=== PATIENT | female | born 1985 | race Caucasian/White ===

== ENCOUNTER 2018-04-22 00:48 | Observation (INO) ==
[2018-04-22] MEDS ORDERED: Lactated Ringers 1,000 ML PRIMARY IV ONE (02:00)
[2018-04-22 02:42] LABS: Amnisure NEGATIVE (NEGATIVE)
[2018-04-22] MEDS ORDERED: TERBUTALINE SULFATE 1 MG/1 ML SDV SUBCUT ONE ×2 (03:10→04:03)
[2018-04-22 06:45] LABS: BASOPHILS # (AUTO) 0.01 10*3/UL; BASOPHILS % (AUTO) 0.1 % (0-1); EOSINOPHILS # (AUTO) 0.01 10*3/UL; EOSINOPHILS % (AUTO) 0.1 % (0-8); Hematocrit [HCT] 32.6 % (37.0-47.0); LYMPHOCYTES # (AUTO) 1.43 10*3/uL; MEAN CORPUSCULAR HEMOGLOBIN 30.2 PG (27-31); MEAN CORPUSCULAR HGB CONC 33.7 g/dL (33-37); MEAN CORPUSCULAR VOLUME 89.6 FL (81-99); MEAN PLATELET VOLUME 10.1 FL (7.4-12.2); MONOCYTES % (AUTO) 5.8 % (5-15); NEUTROPHILS # (AUTO) 9.92 10*3/UL; NEUTROPHILS % (AUTO) 81.9 % (50-80); RED BLOOD COUNT 3.64 10^6/uL (4.20-5.40)
[2018-04-22 06:54] LABS: BLOOD UREA NITROGEN 5 mg/dL (7-22); SERUM ALBUMIN 3.2 g/dL (3.5-4.8)
[2018-04-22 07:08] LABS: PLATELET MORPHOLOGY COMMENT NORMAL MORPHOLOGY (NORM); RBC MORPHOLOGY COMMENT NORMAL MORPHOLOGY (NORM); WBC MORPHOLOGY COMMENT NORMAL MORPHOLOGY (NORM)
[2018-04-22] MEDS: NIFEdipine 10 MG CAPSULE PO PRN ×4 (07:53→20:25)
--- NOTE | 2018-04-22 08:58 | DI ---
US OB Transvaginal,04/22/2018 8:02 AM: Clinical History: labor Previous Exam: April 22, 2018 Findings: Multiple transvaginal grayscale and color Doppler sonographic images are obtained through the lower u terine segment, and demonstrate a cervix which is long and closed measuring 3.7 cm in length. Other e valuation was extremely limited due to advanced maternal age. Impression: Cervix long and closed measuring 3.7 cm in length.
--- NOTE | 2018-04-22 09:28 | DI ---
US OB , Limited,04/22/2018 7:52 AM: Clinical History: contractions. Previous Exam: April 01, 2018 Findings: Multiple transabdominal grayscale and color Doppler sonographic images are obtained through the pelvi s, and demonstrate an amniotic fluid index measuring 6.8 cm. Estimated gestational age was determined by a composite of biparietal diameter, head circumference, a bdominal circumference and femur length yielding an estimated gestational age by ultrasound of 34 wee ks 4 days. Estimated weight is 2331 g (61st percentile). The inferior margin of the placenta lies 9.5 cm from the internal cervical os. Impression: 1. Oligohydramnios. 2. Size equals dates.
--- NOTE | 2018-04-22 10:22 | OB.PROGRES ---
Interval History: 32 yo at 33 0/7 weeks gestation presented last evening with contractions. OB history notable for threatened labor at 30 weeks gestation and did receive a course of steroids. She was prescribed procardia at the time, but contractions resolved and hasn't needed to take it. Yesterday she started feeling ill, nausea, sinus pressure. Around 1830 she started more, she took 2 doses of procardia without improvement so came in for evaluation. Contractions have gotten stronger and closer together. Pain is worst in lower abdomen, worse on L side. She denies recent intercourse. Didn't do anything extra strenuous over the last few days. No cough, fever, vomiting, diarrhea, rash, dysuria, hematuria, vaginal discharge. 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, no etoh or illicit drug use Objective - Cervical Exam Cervical Exam: Per RN fingertip/ /-3 [place]: q2-5 mins Heart Rate: mod variability, baseline 140, +accels, -decels Heart Rate Interpretation Category: Category I - Labs CBC and BMP: 04/22/18 06:45 04/22/18 06:45 Additional Lab Results: 04/22/18 02:35 Amnio Fld Other Info Negative Fibronectin Negative Fibronect Spec Quality No U/s: neli 6.8 cm, single deepest pocket 2.7cm; EFW 61%ile, Cervical length 3.7 cm Assessment and Plan - Patient Problems (1) uterine contractions in third trimester, antepartum Current Visit: Yes Status: Acute Code(s): O47.03 - False labor before 37 completed weeks of gestation, third trimester Support Text: 32 yo at 33 0/7 weeks gestation with contractions. S/p steroid course 3 weeks ago. FFN negative, Cervical length 3.7 cm. She did not respond to procardia at home, contractions did space out this am with terbutaline 0.25mg x2 doses. Urine appears clean. Amnisure negative. Negative vaginosis panel. U/s notable for borderline oligohydramnios with single deepest pocket 2.7 cm. Will give IVF, recheck NELI in am. For contractions she is currently on procardia 10mg po q4h. If contractions increase in frequency or intensity plan to recheck cervix, if evidence of active labor will likely need transferred to [place] given status. Care transferred to Dr. Martin.
[2018-04-22] MEDS ORDERED: Lactated Ringers-OB Dept 1,000 ML ONE (13:22)
[2018-04-22] MEDS: Lactated Ringers 1,000 ML PRIMARY IV SCH ×2 (13:45→23:47)
[2018-04-22] MEDS: diphenhydrAMINE 25 MG CAPSULE PO PRN ×2 (13:46→22:40)
[2018-04-22 16:57] VITALS: TEMP 97.7
[2018-04-22 17:04] LABS: BILIRUBIN,URINE NEGATIVE (NEG); CLARITY,URINE CLEAR (CLEAR); COLOR,URINE YELLOW; GLUCOSE, URINE (UA) NEGATIVE (NEG); OCCULT BLOOD,URINE NEGATIVE (NEG); PROTEIN,URINE NEGATIVE (NEG); UROBILINOGEN,URINE 0.2 mg/dL (0.2)
[2018-04-22 17:18] LABS: SQUAMOUS EPITHELIAL CELL,UR FEW; URINE SAMPLE TYPE CLEAN CATCH URINE; WBC,URINE 0-1
[2018-04-23] MEDS: NIFEdipine 10 MG CAPSULE PO PRN ×3 (01:04→09:02)
[2018-04-23 08:00] VITALS: RESP 18
--- NOTE | 2018-04-23 08:12 | OB.PROGRES ---
Interval History: Pt. is feeling much better this AM. She reports no contractions. US pending this AM for NELI. The patient would like to go home after her ultrasound. FHRM is category 1. Objective - Labs CBC and BMP: 04/22/18 06:45 04/22/18 06:45 - Vital Signs Last Taken Vital Signs: Vital Signs - Last Taken Temperature 97.7 F 04/22/18 16:56 Pulse Rate 87 04/23/18 07:00 Respiratory Rate 18 04/23/18 07:00 Blood Pressure 120/67 04/23/18 06:00 Pulse Ox 97 04/23/18 07:00 Assessment and Plan - Assessment / Plan Additional Assessment/Plan Details: No evidence of PTL. Discharge to home after NELI if normal. - Time/Visit Time Spent With Patient: Less Than 15 Minutes
--- NOTE | 2018-04-23 08:16 | DCSUMMARY ---
Hospitalization Summary Admit Date: 04/22/18 Discharge Date: 04/23/18 Primary Diagnosis:: Contractions Hospital Course: The patient was admitted for treatment of contractions without labor. She was started on procardia and observed. Contractions ceased after several doses of procardia. FHRT remained category 1 throughout. The patient was discharged to home in good condition on HD 2. Exam - Vitals Vital Signs: Vital Signs Temperature 97.7 F Temperature Source Temporal Artery Scan Pulse Rate [Pulse Oximeter] 87 Respiratory Rate 18 Blood Pressure [Left Arm] 120/67 Pulse Ox 97 Height 5 ft 6 in Weight 207 lb 2 oz
[2018-04-23 09:24] VITALS: BP 108/75
[2018-04-23 09:29] VITALS: O2SAT 97
--- NOTE | 2018-04-23 13:01 | DI ---
US OB , Limited,04/23/2018 7:00 AM: Clinical History: Followup amniotic fluid index. Previous Exam: April 22, 2018 Findings: Multiple transabdominal grayscale and color Doppler sonographic images are obtained through the pelvi s, and demonstrate and amniotic fluid index measuring 7.6 cm. Detected Doppler heart tones measured 128 beats per minute. The placenta is anterior. Impression: Amniotic fluid index measuring 7.6 cm. This is likely within margin of error. (No significant change)
== END 2018-04-23 09:15 | disposition home or self-care (01) ==
LOC: OBIP 00:48 → OBOP 00:48 → UNDODISOB 04-23 18:35
PROVIDERS: ADMIT Student in an Organized Health Care Education/Training Program; ATTEND Obstetrics & Gynecology

== ENCOUNTER 2018-05-20 12:51 | Inpatient (IN) ==
[2018-05-20 13:55] LABS: Hematocrit [HCT] 33.3 % (37.0-47.0); Hemoglobin [HGB] 11.4 g/dL (12.0-16.0); MEAN CORPUSCULAR HEMOGLOBIN 30.7 PG (27-31); MEAN CORPUSCULAR HGB CONC 34.2 g/dL (33-37); MEAN CORPUSCULAR VOLUME 89.8 FL (81-99); MEAN PLATELET VOLUME 11.2 FL (7.4-12.2); RED BLOOD COUNT 3.71 10^6/uL (4.20-5.40)
[2018-05-20 14:09] LABS: BLOOD UREA NITROGEN 7 mg/dL (7-22); SERUM ALBUMIN 3.2 g/dL (3.5-4.8); Uric Acid 7.4 mg/dl (2.5-6.2)
[2018-05-20] MEDS ORDERED: ACETAMINOPHEN 500 MG TABLET PO ONE ×2 (17:53→19:15)
--- NOTE | 2018-05-20 19:47 | OB.PROGRES ---
Date of Service: 05/20/18 Time of Service: 18:00 Interval History: 32 at 36 6/7 weeks gestation who presented for testing. has been complicated by contractions, she has been on procardia q4h consistently since 33 weeks, had a hopsitalization at 30 weeks for contractions and received steroids at that time. She also had borderline oligohydramnios at 33 weeks which has since resolved. Over the last week she has had intermittent HAs, increased edema, difficulty focusing when reading. She had a 24 hour urine protein last week that was <300mg , yesterday was 658 mg. She has had blood pressures >140/90 on 2 occasions over the last week. She denies decreased FM, LOF, VB, RUQ pain, scotomota. Again has a frontal BANEGAS that has come and gone over the week. 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 Labs reassuring, but meets criteria by BPs and 24 hour urine protein. Normal reflexes and no clonus. She was given Tylenol and her headache did improve significantly. At the time we were going to discharge her to home the baby had a subtle late decel. With that, the not completely resolved BANEGAS I thought it was prudent to keep her overnight in anticipation for section tomorrow at 37 0/7 weeks gestation. Patient was amenable to this plan. Her last dose of procardia was at 0900 so it will also be nice to see how her blood pressures do and if she contracts more consistently off of procardia. Patient has elected to proceed with a primary LTCS with the history of shoulder dystocia and 3rd degree tear, she would also like a BTL. Will plan to do this tomorrow morning at 37 0/7 weeks gestation. Plan to start mag if any severe signs or symptoms.
[2018-05-20] MEDS ORDERED: LIDOCAINE HCL 2 % 10 ML JELLY URO-JECT TOPICAL PRN (20:18)
--- NOTE | 2018-05-20 21:22 | DI ---
LIMITED OBSTETRICAL ULTRASOUND FOR NELI, 05/20/2018 1:49 PM: Clinical History: Oligohydramnios. Previous Exam: 05/14/2018. EDC Based On Early OB Ultrasound: 06/11/2018. Scans are obtained in all four quadrants for an amnionic fluid index measurement. The NELI is 13.0 cm. The heart rate is 143 beats per minute. Placenta is anterior corpus and normal in appearance a nd is grade 1. Scans over the neck show 2 separate loops of the umbilical cord over that part o f the neck closest to the transducer. No structures are visualized on the deep side of the neck due t o artifacts. Readin. Amnionic fluid index is 13.0 cm. 2. Placenta is anterior corpus and normal. Grade is 1. 3. There are 2 loops of cord over the visualized superficial portions of the neck.
[2018-05-21 05:49] LABS: Hematocrit [HCT] 33.8 % (37.0-47.0); Hemoglobin [HGB] 11.3 g/dL (12.0-16.0); MEAN CORPUSCULAR HEMOGLOBIN 30.4 PG (27-31); MEAN CORPUSCULAR HGB CONC 33.4 g/dL (33-37); MEAN CORPUSCULAR VOLUME 90.9 FL (81-99); MEAN PLATELET VOLUME 11.9 FL (7.4-12.2); RED BLOOD COUNT 3.72 10^6/uL (4.20-5.40)
[2018-05-21] MEDS ORDERED: LIDOCAINE W/ SODIUM BICARB 0.5 ML SYR SUBD PRN ×2 (06:00→06:46)
[2018-05-21] MEDS ORDERED: Metoclopramide Inj 10 MG/2 ML VIAL IV ONE (06:00)
[2018-05-21] MEDS ORDERED: Oxytocin 20 Units + LR 20 UNIT/1,000 ML BAG IV SCH ×2 (06:00→14:35)
[2018-05-21] MEDS ORDERED: FAMOTIDINE 20 MG/2 ML VIAL IVP ONE (06:00)
[2018-05-21] MEDS ORDERED: CITRIC ACID/SODIUM CITRATE 30 ML CUP PO ONE (06:00)
[2018-05-21] MEDS ORDERED: Lactated Ringers 1,000 ML PRIMARY IV ONE (06:00)
[2018-05-21] MEDS ORDERED: CefOXitin Inj 2 GM in Sodium Chloride 0.9% 100 ML IV ONE (06:00)
[2018-05-21 06:05] LABS: BLOOD UREA NITROGEN 10 mg/dL (7-22); SERUM ALBUMIN 3.1 g/dL (3.5-4.8); Uric Acid 7.5 mg/dl (2.5-6.2)
[2018-05-21] MEDS ORDERED: HYDROmorphone 2 MG/1 ML IVP PRN (06:46)
[2018-05-21] MEDS ORDERED: Ondansetron ODT Tab 8 MG TAB PO PRN (06:46)
[2018-05-21] MEDS ORDERED: ONDANSETRON 4 MG/2 ML VIAL IVP PRN ×2 (06:46→14:35)
[2018-05-21] MEDS ORDERED: fentaNYL Inj 100 MCG/2 ML VIAL IVP PRN (06:46)
[2018-05-21] MEDS ORDERED: Lactated Ringers 1,000 ML PRIMARY IV SCH (07:00)
[2018-05-21] MEDS ORDERED: Sodium Chloride 0.9% vial 10 ML ONE ×2 (07:00→07:03)
[2018-05-21] MEDS ORDERED: ePHEDrine Inj 50 MG/ML AMP ONE (07:02)
[2018-05-21] MEDS ORDERED: Oxytocin 20 Units + LR 20 UNIT/1,000 ML BAG IV ONE (07:08)
[2018-05-21] MEDS ORDERED: ACETAMINOPHEN 500 MG TABLET PO ONE (07:45)
--- NOTE | 2018-05-21 10:03 | CRNA.PROGR ---
Anesthesia Recovery Phase I - Post Anesthesia Evaluation Patient's Condition on Arrival in Phase I: Stable Patient's Condition on Arrival in Phase II: Stable Pain Level: 0
--- NOTE | 2018-05-21 10:03 | CRNA.PROGR ---
Anesthesia Time - - Start date: 05/21/18 End date: 05/21/18 - Procedure/Recovery Time Anesthesia : Time In: 11:08 Anesthesia : Time Out: 12:55 Anesthesia : Total Time: 107 - Total Anesthesia Time Total Anesthesia Time (minutes): 107 - Other Weight: 82.1 kg Height: 4 ft 10 in Body Mass Index (BMI): 37.8 Physical Status: P2 (Preeclamptic, obesity) Anesthesia Type: Spinal Block Obstetrics: C/S anesthesia only
--- NOTE | 2018-05-21 10:04 | CRNA.PROGR ---
Anesthesia Recovery Phase I - Post Anesthesia Evaluation Pain Level: 2
--- NOTE | 2018-05-21 10:04 | CRNA.PROGR ---
Post Anesthesia Phase II - Post Anesthesia Phase II Patient Stable and Discharged To: OB Care Assumed By Surgeon: Pablito Berger MD Temperature: 97.7 F Pulse Rate: 84 Respiratory Rate: 18 Pulse Ox: 98 Total Mag Score at Discharge: 9 Post Anesthesia Discharge Criteria Met: Yes
--- NOTE | 2018-05-21 10:52 | OB.PROGRES ---
Date of Service: 05/21/18 Time of Service: 08:00 Interval History: Patient got some rest last night, BANEGAS did return this morning and will treat with tylenol. Denies RUQ pain, scotomota. Objective - Cervical Exam [place]: irregular Heart Rate: moderate variability, accels no decels Heart Rate Interpretation Category: Category I - Labs CBC and BMP: 05/21/18 05:15 05/21/18 05:15 - Vital Signs Last Taken Vital Signs: Vital Signs - Last Taken Temperature 97.7 F 05/21/18 10:04 Pulse Rate 84 05/21/18 10:04 Respiratory Rate 18 05/21/18 10:04 Blood Pressure 108/70 05/21/18 07:00 Pulse Ox 98 05/21/18 10:04 One BP of 132/93 at 0500 otherwise BPs normal through the night Assessment and Plan - Patient Problems (1) Preeclampsia Current Visit: Yes Status: Acute Code(s): O14.90 - Unspecified pre-eclampsia , unspecified trimester Support Text: 32 yo at 37 0/7 weeks gestation with preeclampsia, without signs or symptoms of severe features (assuming BANEGAS again responds to tylenol). Plan to proceed with primary LTCS with BTL. We discussed in detail risks of section and BTL. Newest recommendations are to do b/l salpingectomy for ovarian cancer risk reduction - we discussed this vs filshie clips depending on vascularity. Patient is certain that she has satisfied parity. Proceed to OR today
[2018-05-21] MEDS: Lactated Ringers 1,000 ML PRIMARY IV SCH (11:05)
[2018-05-21] MEDS ORDERED: MORPHINE SULFATE/PF 10 MG/10 ML AMPULE ONE (11:08)
[2018-05-21] MEDS ORDERED: fentaNYL Inj 100 MCG/2 ML VIAL ONE (11:48)
--- NOTE | 2018-05-21 13:37 | OB.OP.NOTE ---
Operative Report - - Surgeon: Pablito Berger MD Physical Instructor: Christiano Fisher MD Anesthesia Type: Regional Anesthesia Provider: Neeta Farrell CRNA Surgery Date: 05/21/18 Preoperative Diagnosis: Term, 37 weeks gestation IUP. Preeclampsia. Satisfied parity. H/o 3rd degree tear with shoulder dystocia Postoperative Diagnosis: same. 6 lb 11.9 oz male. normal uterus ovaries and fallopian tubes Procedure: Primary LTCS with BTL Complications: none apparent Estimated Blood Loss (mL): 650 Fluids: 1800 Indications: Desired primary LTCS with h/o shoulder dystocia with 3rd degree laceration, satisfied parity Description of Procedure: The patient was taken to the operating room where spinal anesthesia was found to be adequate. A lorenz catheter was placed. She was then prepared and draped in the normal sterile fashion in the dorsal supine position with a leftward tilt. A Pfannenstiel skin incision was then made with the scalpel and carried through to the underlying layer of fascia with the Bovie. The fascia was incised in the midline and the incision extended laterally with the Bovie. The superior aspect of the fascial incision was then grasped with the Antoinette clamps, elevated, and the underlying rectus muscles dissected off bluntly. The perforating vessel on the L side did bleed with separation. Attention was then turned to the inferior aspect of this incision which, in a similar fashion, was grasped with the Antoinette clamps and the rectus muscles dissected off both bluntly and with the Bovie. The rectus muscle was then in the midline , and the peritoneum identified and entered digitally. The peritoneal incision was then extended superiorly and inferiorly with good visualization of the bladder. The Kam retractor was then inserted and the vesicouterine peritoneum was identified. The lower uterine segment was incised in a transverse fashion with the scalpel. The uterine incision was then extended laterally in a blunt fashion. The 's head was delivered atraumatically. A double nuchal cord was reduced. The nose and mouth were suctioned with the bulb suction and the cord clamped and cut after 45 seconds for delayed cord clamping. The infant was handed off to the awaiting nurse. Cord gases and cord blood were sent for analysis. The placenta was then removed manually, albeit a bit more complicated than normal - the plane was not as apparent on the anterior surface. The placenta was sent to pathology. The uterus was then exteriorized, and cleared of all clots and debris. The uterine incision was repaired with 0 Vicryl in a running, locked fashion. A second layer of the same suture was used to obtain excellent hemostasis. Attention was then turned to the tubal ligation. Patient was consented for salpingectomy vs filshie clip. The mesosalpinx was quite vascular and decision was made to proceed with filshie clips. The fallopian tube on the R was first identified and followed to the fimbria. A filshie clip was placed approx 2 cm from the cornua. The same was repeated on the L side. The tubes and ovaries appeared normal bilaterally. The peritoneal cavity was then copiously irrigated with warm saline. The uterus was returned to the abdomen. The paracolic gutters were copiously irrigated with warm saline and a second look at the uterine incision continued to reveal excellent hemostasis. The peritoneum was closed with 3-0 Vicryl. The fascia reapproximated with 0 Vicryl in a running fashion starting from the patient's L to past midline. Then from the R to past the prior suture. The tags were then tied together as well. The subcutaneous space was irrigated copiously with warm saline and then closed with 2 layers of 3-0 Vicryl and then more superficially with 2-0 stratafix suture. The skin was reapproximated with Steri-Strips and a Silverlon dressing applied. Fundal massage was completed with no clots in vaginal vault. The patient tolerated the procedure well. Sponge, lap, and needle counts were correct x2. Mefoxin was given preoperatively less than one hour prior to incision time. The patient was taken to the recovery room in stable condition. Apgars 10, 10 Patient Problems - Patient Problem List (1) Preeclampsia Current Visit: Yes Status: Acute Code(s): O14.90 - Unspecified pre-eclampsia , unspecified trimester Category: Medical
[2018-05-21] MEDS ORDERED: BUTORPHANOL TARTRATE 2 MG/1 ML VIAL IVP ONE (13:46)
[2018-05-21] MEDS ORDERED: DEXAMETHASONE PF 10 MG/1 ML VIAL ONE (13:50)
[2018-05-21] MEDS ORDERED: BUTORPHANOL TARTRATE 2 MG/1 ML VIAL IVP PRN (14:35)
[2018-05-21] MEDS ORDERED: diphenhydrAMINE 25 MG CAPSULE PO PRN (14:35)
[2018-05-21] MEDS ORDERED: FAMOTIDINE 20 MG/2 ML VIAL IVP PRN (14:35)
[2018-05-21] MEDS ORDERED: diphenhydrAMINE 50 MG/1 ML VIAL IV PRN (14:35)
[2018-05-21] MEDS ORDERED: Naloxone Inj 0.01 MG, Sodium Chloride 0.9% vial 1 ML IVP PRN ×2 (14:35)
[2018-05-21] MEDS ORDERED: Nalbuphine Inj 20 MG/ML Ampule IVP PRN (14:35)
[2018-05-21] MEDS ORDERED: LANOLIN HPA 40 GM TUBE TOPICAL PRN (14:35)
[2018-05-21] MEDS ORDERED: CALCIUM CARBONATE 500 MG (TUMS) CHEWABLE TABLET PO PRN (14:35)
--- NOTE | 2018-05-21 16:14 | CRNA.PROCE ---
Central Neuraxis Block Placemt - - Safety Measures: Time Out Taken, Site Verified - - Type of Block: Subarachnoid Reason for Block: Surgical Sedation Used - Enter Amount Used in Comment Field: Midazolam (mg): Yes, Fentanyl (mcg): Yes, Other Sedation: Yes Positioning: Sitting Skin Prep Used: ChloroPrep (twice) Draped: Yes Skin Infiltration - Enter Amount Used in Comment Field: 1% Xylocaine (mL): Yes ( 1.0) Spinal Needle Used: 22 Manuel 80 mm Local Anesthetic - Enter Amount Used in Comment Field: 0.75 % Bupivacaine with Dextrose (ml): Yes (2.0) Additive Used - Enter Amount Used in Comment Field: Preservative Free Morphine ( mg): Yes (.02) Bioclusive Dressing Applied: No - - Additional Details: Nauseated post smooth c section. Medicated Anesthesia Time - Other Weight: 82.1 kg Height: 4 ft 10 in Body Mass Index (BMI): 37.8
[2018-05-21] MEDS ORDERED: NALOXONE 0.4 MG/1 ML VIAL ONE ×2 (16:31→16:44)
[2018-05-21] MEDS ORDERED: Sodium Chloride 0.9% 1,000 ML ONE ×2 (16:31→16:44)
--- NOTE | 2018-05-21 16:58 | CRNA.PROGR ---
Anesthesia Note - Progress Notes Anesthesia Progress Note: Post c section nausea related to PF MSO4 0.2 mg. Breast feeding, can't use phenergan, compazine or Scopalamine. Spoke with Anca from pharmacy. Mixed 2 bags of Narcan (Naloxone ) infusion. 1 mg in 1000 ml of 0.9% saodium chloride to run at 125 ml per hour. Hopefully reduce nausea and yet not remove all analgesia r/t PF MSO4.
[2018-05-21] MEDS: D5-LR 1,000 ML PRIMARY IV SCH (17:29)
[2018-05-21] MEDS: KETOROLAC 15 MG/1 ML VIAL IVP SCH ×2 (17:34→23:35)
[2018-05-21] MEDS: FAMOTIDINE 20 MG/2 ML VIAL IVP SCH (21:00)
[2018-05-22] MEDS: D5-LR 1,000 ML PRIMARY IV SCH (03:55)
[2018-05-22] MEDS: Lactated Ringers 1,000 ML PRIMARY IV SCH (04:31)
[2018-05-22 05:33] LABS: Hematocrit [HCT] 27.8 % (37.0-47.0); Hemoglobin [HGB] 9.4 g/dL (12.0-16.0); MEAN CORPUSCULAR HEMOGLOBIN 30.7 PG (27-31); MEAN CORPUSCULAR HGB CONC 33.8 g/dL (33-37); MEAN CORPUSCULAR VOLUME 90.8 FL (81-99); RED BLOOD COUNT 3.06 10^6/uL (4.20-5.40)
[2018-05-22] MEDS: KETOROLAC 15 MG/1 ML VIAL IVP SCH ×3 (05:35→21:37)
[2018-05-22 05:52] LABS: BLOOD UREA NITROGEN 8 mg/dL (7-22); SERUM ALBUMIN 2.4 g/dL (3.5-4.8); Uric Acid 7.2 mg/dl (2.5-6.2)
[2018-05-22] MEDS: Prenatal Multivitamin Tab 1 TAB TAB PO SCH (09:14)
[2018-05-22] MEDS: Senna/Docusate Tab 1 TAB TAB PO SCH ×2 (09:14→20:56)
[2018-05-22] MEDS: FAMOTIDINE 20 MG/2 ML VIAL IVP SCH (09:14)
--- NOTE | 2018-05-22 12:42 | CRNA.PROGR ---
Anesthesia Note - Progress Notes Anesthesia Progress Note: Visited with patient, been ambulating, has several visitors present. No N/V, pain minimal, has no complaints. HANK Sheets
--- NOTE | 2018-05-22 18:10 | OB.PROGRES ---
Subjective Post Day: 1 Pain Management: PO Little Catheter: No Flatus: No Lochia Color: Rubra/Red Scant < 10 ml Diet: Regular [place] Feeding Method: Exculsively Ambulating: Yes Concerns / Additional Information: Headache has resolved. Feeling much better today. Still feels puffy in her face and hands. Minimal lochia. Objective - General General Appearance: POSITIVE: No Acute Distress, Cooperative - Cardiovacular Cardiovascular Exam: POSITIVE: RRR, No Murmur Edema: +2 Pedal Edema Extremities: Negative Deaj's - Bilaterally - Respiratory Respiratory Exam: POSITIVE: Clear to Auscultation - Bilaterally, Breathing Non Labored - Abdomen Bowel Sounds: Hypoactive Assesstment / Plan (1) Status post primary low transverse section Current Visit: Yes Status: Acute (2) Preeclampsia Current Visit: Yes Status: Acute Assessment / Plan: -routine cares. -normotensive with essentially normal labs, will continue observation of blood pressures. -pain is well controlled with motrin and narcotics. -breast feeding going well. -rh positive. -rubella immune. -possible d/c home in 1-2 days.
[2018-05-22] MEDS: IBUPROFEN 800 MG TABLET PO PRN (19:39)
[2018-05-22] MEDS: oxyCODONE-ACETAMINOPHEN 5-325 TAB PO PRN (19:40)
[2018-05-22] MEDS: FERROUS GLUCONATE 324 MG TABLET PO SCH (20:56)
[2018-05-23] MEDS: FAMOTIDINE 20 MG/2 ML VIAL IVP SCH ×2 (01:09→11:02)
[2018-05-23] MEDS: oxyCODONE-ACETAMINOPHEN 5-325 TAB PO PRN ×3 (01:14→14:25)
[2018-05-23] MEDS: IBUPROFEN 800 MG TABLET PO PRN ×2 (05:28→14:24)
[2018-05-23 05:34] VITALS: TEMP 98
[2018-05-23] MEDS: D5-LR 1,000 ML PRIMARY IV SCH ×3 (09:08→09:12)
[2018-05-23] MEDS: Prenatal Multivitamin Tab 1 TAB TAB PO SCH (09:44)
[2018-05-23] MEDS: Senna/Docusate Tab 1 TAB TAB PO SCH (09:45)
[2018-05-23] MEDS: FERROUS GLUCONATE 324 MG TABLET PO SCH (09:45)
[2018-05-23 10:56] VITALS: BP 131/84; RESP 16; O2SAT 96
--- NOTE | 2018-05-23 15:49 | DCSUMMARY ---
Hospitalization Summary Admit Date: 05/20/18 Discharge Date: 05/23/18 Primary Surgery and Date: primary LTCS and BTL Delivery Type: Hospital Course: 32 yo G3 now P2012 was admitted at 36 6/7 weeks gestation with preeclampsia (24 hour urine 658 grams, pressures >140/90, but not in severe range). She had had a BANEGAS off and on over the week that was responsive to tylenol, improved the night of admission again with tylenol but had a late decel and decision was made to admit her and plan for delivery at 37 0/7 weeks gestation. complicated by threatened labor, course of steroids at 30 weeks and then on procardia since 34 weeks gestation. Prior delivery complicated by shoulder dystocia with 3rd degree tear, patient elected to proceed with primary LTCS with BTL. section was uneventful. The patient did have pretty significant nausea postop, ultimately responded well to a narcan drip. Her BANEGAS has not returned, she is feeling better now . No further elevated BPs. / Postop Complications: postop anemia and nausea Complications: with hypospadias Exam - Vitals Vital Signs: Vital Signs Temperature 98.0 F Temperature Source Oral Pulse Rate [Pulse Oximeter] 87 Pulse Rate 102 Respiratory Rate 16 Blood Pressure [Right Arm] 131/84 Blood Pressure 139/75 Pulse Ox 96 Oxygen Flow Rate 2 Oxygen Delivery Method Room Air Height 5 ft 4 in Weight 181 lb - General General Appearance: No Acute Distress, Cooperative - Head Head Exam: Normal Inspection - Respiratory Respiratory Exam: POSITIVE: Clear to Auscultation - Bilaterally, Breathing Non Labored. NEGATIVE: Rales, Rhonci, Crackles, Wheezes - Cardiovascular Cardiovascular Exam: POSITIVE: RRR, No Murmur - GI/Abdominal GI/Abdominal Exam: POSITIVE: Normal Bowel Sounds - Extremities Extremities Exam: POSITIVE: Negative Deja's sign, +1 Edema - Neurological Neurological Exam: POSITIVE: Alert, Oriented x 3 - Psychiatric Psychiatric Exam: POSITIVE: Normal Affect, Normal Mood Data Peritnent Studies: 05/20/18 05/20/18 05/22/18 13:50 13:50 05:05 WBC 7.84 13.23 H Hgb 11.4 L 9.4 L Hct 33.3 L 27.8 L Plt Count 178 157 Sodium 136 Potassium 3.9 Chloride 110 Carbon Dioxide 17 L BUN 7 Creatinine 0.5 Glucose 117 H Uric Acid 7.4 H Calcium 9.0 Total Bilirubin 0.2 L AST 21 ALT 24 Alkaline Phosphatase 135 H Lactate Dehydrogenase 325 05/22/18 05:05 WBC Hgb Hct Plt Count Sodium 136 Potassium 4.3 Chloride 111 Carbon Dioxide 19 L BUN 8 Creatinine 0.5 Glucose 66 L Uric Acid 7.2 H Calcium 8.4 L Total Bilirubin 0.1 L AST 15 ALT 25 Alkaline Phosphatase 102 Lactate Dehydrogenase 499 Patient Problems - Patient Problem List (1) Preeclampsia Current Visit: Yes Status: Acute Code(s): O14.90 - Unspecified pre-eclampsia , unspecified trimester Category: Medical (2) Status post primary low transverse section Current Visit: Yes Status: Acute Code(s): Z98.891 - History of uterine scar from previous surgery Support Text: 32 yo G3 now P2012, POD 2 s/p primary LTCS with BTL at 37 0/7 weeks for preeclampsia with history of 3rd degree with shoulder dystocia. -BPs normal since delivery, labs unremarkable, f/u 2 days for BP check, precautions -Mild postop anemia - will d/c on ferrous gluconate -Pain well controlled - will d/c with 300 mg motrin #60 and percocet 5/325 #30; sennakot for constipation -s/p Tubal -Rh +, Rubella Immune -F/u in 1 week for incision check Category: Medical
== END 2018-05-23 14:35 | disposition home or self-care (01) | DRG 766 ==
LOC: US 12:51 → OBIP 20:17
PROVIDERS: ADMIT Student in an Organized Health Care Education/Training Program; ATTEND Student in an Organized Health Care Education/Training Program